=== PATIENT | female | born 1995 | race Caucasian/White ===

== ENCOUNTER 2023-05-25 17:12 | Emergency (ER) | payer SELFPAY ==
[~2023-05-25] VITALS: Ht 162.6 cm; Wt 56.8 kg
[~2023-05-25 17:12] MED LIST: CEPHALEXIN500 M1 PO
[2023-05-25 17:30] VITALS: TEMP 98.2
[2023-05-25 18:13] LABS: BASO # 0.1 K/mm3 (0.0-0.2); BASO % 0.5 % (0.0-2.0); EOS # 0.1 K/mm3 (0.0-0.7); GRAN # 6.6 K/mm3 (1.4-6.5); GRAN % 64.8 % (42.2-75.2); HEMATOCRIT 37.2 % (37.0-47.0); HEMOGLOBIN 13.1 g/dl (12.5-16.0); LYMPH # 2.7 K/mm3 (1.2-3.4); LYMPH % 26.3 % (20.0-51.0); MEAN CELL VOLUME 98 fl (80.0-100.0); MEAN CORPUSCULAR HEMOGLOBIN 35 pg (27-31); MEAN CORPUSCULAR HGB CONC 35 g/dl (33.0-37.0); MEAN PLATELET VOLUME 9.4 fl (7.4-10.4); MONO # 0.7 K/mm3 (0.1-0.6); MONO % 7.2 % (1.7-9.3); PLATELET COUNT 251 K/mm3 (130-400)
[2023-05-25 18:37] LABS: ALBUMIN 4.4 gm/dL (3.5-5.0); BILIRUBIN,TOTAL 0.6 mg/dL (0.2-1.2); C-REACTIVE PROTEIN 0.08 mg/dL (0.00-0.50); CALCIUM 9.4 mg/dL (8.4-10.2); CREATININE, serum 0.66 mg/dL (0.57-1.11); POTASSIUM 3.9 mmol/L (3.5-4.5); TOTAL PROTEIN 7.3 gm/dL (6.2-8.1)
[2023-05-25 19:02] LABS: COLLECTION METHOD CLEAN CATCH
[2023-05-25] MEDS ORDERED: ZOFRAN ODT4 MG PO (19:16)
[2023-05-25 19:17] LABS: URINE APPEARANCE Clear (CLEAR/HAZY); URINE BLOOD Negative (NEGATIVE); URINE COLOR Yellow (YELLOW); URINE GLUCOSE Negative (NEGATIVE); URINE KETONE 2+ (NEGATIVE); URINE NITRATE Negative (NEGATIVE); URINE PROTEIN(semi-quant) Negative (NEGATIVE); URINE UROBILINOGEN 0.2 E.U/dL (0.2-1.0)
[2023-05-25 19:33] VITALS: BP 124/70; PULSE 76
[2023-05-25 20:29] LABS: SQUAMOUS EPITHELIAL 0-2 /hpf (0-10); URINE BACTERIA Occasional /hpf (NONE SEEN); URINE RBC 0-2 /hpf (0-2)
== END 2023-05-25 19:33 | disposition home or self-care (01) ==
LOC: COL.ER 17:12
PROVIDERS: Nurse Practitioner Primary Care
DX: O26.899 Other specified pregnancy related conditions, unspecified trimester (principal); R10.13 Epigastric pain; O21.9 Vomiting of pregnancy, unspecified; O99.330 Smoking (tobacco) complicating pregnancy, unspecified trimester; F17.290 Nicotine dependence, other tobacco product, uncomplicated; Z3A.00 Weeks of gestation of pregnancy not specified
CPT/HCPCS: J2405; J7030